=== PATIENT | male | born 1960 | race Native Hawaiian/Other Pacific Islander ===

== ENCOUNTER 2016-08-19 21:47 | Emergency (ER) | payer OTHER ==
[~2016-08-19] VITALS: Ht 193 cm; Wt 145.2 kg
[~2016-08-19 21:47] MED LIST: ACTOS15 MG OR; ALBUAER5; ALBUAER5 INH; ALBUTEROL0.083 % IN; CRESTOR20 MG PO; FURO40TA93 PO; HYDROCHLOROT50 MG; HYDROCHLOROT50 MG PO; KLOR-CON M2020 MEQ OR; LEVAQUIN500 MG PO; LEVO0.0218 PO; MELOXICAM7.5 MG PO; METF500T PO; MOBIC15 MG OR; NEXIUM40 M1 OR; RYBIX ODT50 MG OR; TRAM50TA; [UNRECOGNIZED DRUG - OTHER] OR
[2016-08-19 22:50] VITALS: BP 145/82; TEMP 98.8
== END 2016-08-19 22:56 | disposition home or self-care (01) ==
LOC: ED 21:47
DX: L03.113 Cellulitis of right upper limb (principal)
CPT/HCPCS: 99283

== ENCOUNTER 2016-08-22 07:59 | Observation (INO) | payer OTHER ==
[~2016-08-22] VITALS: Ht 193 cm; Wt 178.7 kg
[2016-08-22 08:39] VITALS: BP 144/85; TEMP 98.4
[2016-08-22 09:43] LABS: PLATELET COUNT 195 K/uL (142-355)
[2016-08-22 09:50] LABS: POTASSIUM 4.3 mmol/L (3.6-5.2); SODIUM 134 mmol/L (136-145)
[2016-08-22] MEDS ORDERED: JANUMET1 TA1 PO (14:13)
[2016-08-22 16:58] VITALS: BP 120/80; TEMP 97.6; Ht 193 cm; Wt 178.7 kg
--- NOTE | 2016-08-22 17:35 | NUR ---
1700 DR FISH HERE FOR CONSULT AT THIS TIME. AT BS. DISCUSSING I&D CONSENT OBTAINED FOR I&D AT THIS TIME. 1715 I&D PERFORMED AT BS. WOUND CULTURE OBTAINED. AFTER PACKING WOUND WITH 1/4 INCH IODOFORM WOUND COVERED WITH 4X4 TELFAS AND WRAPPED WITH KYRIE. PT STATED "I FEEL SICK LIKE IM GOING TO BE SICK" AT THAT TIME PT SLUMPED TO LEFT SIDE WITH HEAD FALLING FOWARD. O2 AT 2 L/NC PLACED ON PT AT THIS TIME. DR FISH REMAINS AT BS. PT PLACED IN HIGH FOWLERS POSITION. SPONTANEOUS RESP PRESENT HR PALP. RESP EVEN AND NON LABORED. AFTER APPROX 1 MIN PT AWAKE AND ALERT. DENIES ANY CHEST PAIN ONLY SLIGHT NAUSEA REPORTED. ORDERS REC'D FOR CE AND EKG AT THIS TIME. 1730 LABS DRAWN AND SENT TO LAB ALONG WITH WOUND CULTURE. RESP AT BS FOR EKG. [address] REYNOLDS. AWAITING FURTHER ORDERS AT THIS TIME.
[2016-08-22] MEDS ORDERED: VICTOZA18 MG/3 ML SC (17:59)
[2016-08-22 20:00] VITALS: BP 119/68; TEMP 98
--- NOTE | 2016-08-22 22:12 | NUR ---
2124-Received pt from [facility] via wheelchair. Pt alert and oriented. Denies chest pain at this time. No distress noted. VSS per monitor. NS infusing at 75cc/hr via 22g to LFA. No s/s of infiltration noted. Assessment completed. Bed in low position. R Hand covered with kerlex from I&D this afternoon. No drainage noted at this time. Call light within reach. Will continue to monitor.
--- NOTE | 2016-08-22 23:28 | NUR ---
2320-Notified Dr. Fried of pt's home med. Orders to resume Janumet XR given at this time. May use home med.
[2016-08-22 23:30] VITALS: BP 124/69
[2016-08-23] VITALS (9 sets, daily range): BP systolic 100–151; BP diastolic 51–80; TEMP 97.7–97.8
--- NOTE | 2016-08-23 01:58 | NUR ---
Dr. Fried reviewed EKG. No orders given at this time. Pt denies chest pain at this time. Will continue to monitor.
--- NOTE | 2016-08-23 05:12 | NUR ---
Pt resting in bed with eyes closed. No distress noted. VSS per monitor. WIll continue to monitor.
[2016-08-23 06:33] LABS: SODIUM 133 mmol/L (136-145)
[2016-08-23 06:47] LABS: PLATELET COUNT 199 K/uL (142-355)
--- NOTE | 2016-08-23 07:59 | NUR ---
PT AWAKE RESTING IN BED WATCHING TV. NO COMPLAINTS VOICED DENIES PAIN. RECIEVED AM MEDS. WANTS TO GO HOME TODAY. DRESSING TO RIGHT HAND CLEAN DRY INTACT.
--- NOTE | 2016-08-23 10:20 | NUR ---
ATE ALL BREAKFAST [place] WELL, RECIEVED AM MEDS. PT REFUSEED TO TAKE LOVENOX, PT DID TAKE ASA ALONG WITH OTHER MEDS. REPORT TO SHERWIN, DR REYNOLDS'A NURSE.
[2016-08-23] MEDS ORDERED: VICTOZA18 MG/3 ML SC (10:54)
--- NOTE | 2016-08-23 11:26 | NUR ---
DR. REYNOLDS HERE TO SEE PT.
--- NOTE | 2016-08-23 12:45 | NUR ---
REMOVED IV LEFT AC CATH INTACT NO REDNESS NO SWELLING AT SITE. REDRESSED RIGHT HAND, SWELLING AND REDNESS DOWN ACCORDING TO PT. PACKING IN PLACE, DR REYNOLDS OBSERVED WOUND. HAND REWRAPPED, AND RIGHT ARM PLACED IN SLING TO KEEP HAND ELEVATED. PT FAMILY MEMBER HERE, REVIEWED WITH PT AND FAMILY MEMBER DISCHARGE INSTRUCTIONS, PT RECIEVED RX. CALLED TO DR FISH, RECIEVED ORDERS PT WILL FOLLOW UP WITH PCP. PT VERBALIZED UNDERSTANDING OF DISCHARGE ORDERS. PT DISCHARGED VIA W/C TO GO HOME WITH FAMILY MEMBER, NO COMPLAINTS.
== END 2016-08-23 12:40 | disposition home or self-care (01) ==
LOC: ED 07:59 → MED/SURG 11:15 → ICU 11:15 → MED/SURG 21:21 → ICU 21:21
PROVIDERS: Emergency Medicine
PROC: 0H9GXZZ Drainage of Left Hand Skin, External Approach (ICD-10-PCS; principal; 2016-08-22)
DX: L03.113 Cellulitis of right upper limb (principal); E11.9 Type 2 diabetes mellitus without complications; B95.7 Other staphylococcus as the cause of diseases classified elsewhere; J44.9 Chronic obstructive pulmonary disease, unspecified; E66.8 Other obesity
CPT/HCPCS: 36415; 80053; 82550; 82948; 83036; 84484; 85027; 87070; 87077; 87185; 87186; 87205; 93005; 94760; 96361; 96365; 96372; 99220; 99283; 99284; G0378; J1650; J3370; J3490

== ENCOUNTER 2017-01-15 17:34 | Emergency (ER) | payer OTHER ==
[~2017-01-15] VITALS: Ht 193 cm; Wt 152.0 kg
[2017-01-15 17:30] VITALS: TEMP 97.5
[~2017-01-15 17:34] MED LIST changes: +JANUMET1 TA1 PO; +VICTOZA18 MG/3 ML SC
[2017-01-15 19:15] VITALS: BP 125/80
== END 2017-01-15 19:15 | disposition home or self-care (01) ==
LOC: ED 17:34
PROC: 0HQKXZZ Repair Right Lower Leg Skin, External Approach (ICD-10-PCS; principal; 2017-01-15)
DX: S81.811A Laceration without foreign body, right lower leg, initial encounter (principal); W29.3XXA Contact with powered garden and outdoor hand tools and machinery, initial encounter; Y92.89 Other specified places as the place of occurrence of the external cause
CPT/HCPCS: 90715; 99283

== ENCOUNTER 2017-04-15 11:17 | Inpatient (IN) | payer OTHER ==
[~2017-04-15] VITALS: Ht 193 cm; Wt 154.8 kg
[2017-04-15 11:30] VITALS: BP 160/83; TEMP 97.4
[2017-04-15 12:30] LABS: PLATELET COUNT 196 K/uL (142-355)
[2017-04-15 12:44] LABS: POTASSIUM 4.6 mmol/L (3.6-5.2); SODIUM 129 mmol/L (136-145)
[2017-04-15 15:40] VITALS: BP 119/65; TEMP 97.8; Ht 193 cm; Wt 154.8 kg
[2017-04-15 16:00] VITALS: BP 119/65; TEMP 97.8
[2017-04-15 20:00] VITALS: BP 131/67; TEMP 99.1
[2017-04-16] VITALS: BP 130/63; TEMP 98.1
[2017-04-16 04:00] VITALS: BP 105/67; TEMP 98.6
[2017-04-16 06:04] LABS: POTASSIUM 3.9 mmol/L (3.6-5.2)
[2017-04-16 06:12] LABS: PLATELET COUNT 198 K/uL (142-355)
[2017-04-16 08:00] VITALS: BP 115/55; TEMP 97.1
[2017-04-16 11:59] VITALS: BP 106/70; TEMP 98.9
[2017-04-16 16:00] VITALS: BP 143/59; TEMP 98.2
[2017-04-16 20:00] VITALS: BP 143/58; TEMP 98.9
[2017-04-17] VITALS: BP 147/69; BP 161/62; TEMP 97.8; TEMP 99.2
[2017-04-17 04:00] VITALS: BP 126/67; TEMP 98.7
[2017-04-17 05:07] LABS: PLATELET COUNT 197 K/uL (142-355)
[2017-04-17 05:23] LABS: POTASSIUM 3.4 mmol/L (3.6-5.2); SODIUM 131 mmol/L (136-145)
[2017-04-17 08:00] VITALS: BP 147/64; TEMP 98.2
[2017-04-17] MEDS ORDERED: JANUMET XR1 TA1 PO (08:47)
[2017-04-17 12:00] VITALS: BP 118/55; TEMP 98.3
[2017-04-17 16:00] VITALS: BP 130/42; TEMP 98.7
[2017-04-17 20:15] VITALS: BP 106/51; TEMP 99.4
[2017-04-18] VITALS: BP 126/48; TEMP 98.5
[2017-04-18 04:00] VITALS: BP 111/55; TEMP 99.1
[2017-04-18 05:43] LABS: PLATELET COUNT 220 K/uL (142-355)
[2017-04-18 06:02] LABS: POTASSIUM 3.4 mmol/L (3.6-5.2); SODIUM 131 mmol/L (136-145)
[2017-04-18 08:00] VITALS: BP 136/46; TEMP 97.7
[2017-04-18 12:00] VITALS: BP 135/70; TEMP 98.9
[2017-04-18 16:00] VITALS: BP 125/56; TEMP 97.8
[2017-04-18 20:00] VITALS: BP 156/57; TEMP 99.4
[2017-04-19] VITALS: BP 127/76; TEMP 99.1
[2017-04-19 04:00] VITALS: BP 121/88; TEMP 98.5
[2017-04-19 05:41] LABS: PLATELET COUNT 253 K/uL (142-355)
[2017-04-19 06:29] LABS: POTASSIUM 3.3 mmol/L (3.6-5.2); SODIUM 131 mmol/L (136-145)
[2017-04-19 08:00] VITALS: BP 130/73; TEMP 98.5
[2017-04-19 12:00] VITALS: BP 107/54; TEMP 98.1
[2017-04-19 16:00] VITALS: BP 139/80; TEMP 99.7
[2017-04-19 20:00] VITALS: BP 134/83; TEMP 98.2
[2017-04-20] VITALS (7 sets, daily range): BP systolic 113–144; BP diastolic 50–77; TEMP 97.9–98.6
[2017-04-20 03:35] LABS: PLATELET COUNT 255 K/uL (142-355)
[2017-04-20 03:44] LABS: POTASSIUM 3.2 mmol/L (3.6-5.2); SODIUM 131 mmol/L (136-145)
[2017-04-21 04:16] VITALS: BP 127/52; TEMP 98
[2017-04-21 06:27] LABS: PLATELET COUNT 273 K/uL (142-355)
[2017-04-21 07:00] LABS: POTASSIUM 3.8 mmol/L (3.6-5.2); SODIUM 133 mmol/L (136-145)
[2017-04-21 08:00] VITALS: BP 135/66; TEMP 98.3
== END 2017-04-21 12:00 | disposition home or self-care (01) | DRG 603 ==
LOC: ED 11:17 → MED/SURG 14:23
PROVIDERS: Specialist
DX: L03.115 Cellulitis of right lower limb (principal); B95.61 Methicillin susceptible Staphylococcus aureus infection as the cause of diseases classified elsewhere; E11.9 Type 2 diabetes mellitus without complications; I73.89 Other specified peripheral vascular diseases; E03.8 Other specified hypothyroidism; J44.9 Chronic obstructive pulmonary disease, unspecified; E11.42 Type 2 diabetes mellitus with diabetic polyneuropathy; E87.6 Hypokalemia
CPT/HCPCS: 36415; 80053; 80202; 82948; 83735; 85027; 85651; 87070; 87077; 87185; 87186; 87205; 94640; 94664; 94760; 96365; 96372; 96375; 99284; J1815; J1885; J3370

== ENCOUNTER 2017-09-29 15:38 | Emergency (ER) | payer OTHER ==
[~2017-09-29] VITALS: Ht 193 cm; Wt 154.2 kg
[~2017-09-29 15:38] MED LIST changes: +JANUMET XR1 TA1 PO
[2017-09-29 19:19] VITALS: BP 138/79; TEMP 99.6
== END 2017-09-29 19:20 | disposition home or self-care (01) ==
LOC: ED 15:38
DX: R22.0 Localized swelling, mass and lump, head (principal)
CPT/HCPCS: 96372; 99282; J1885

== ENCOUNTER 2022-02-21 11:03 | Emergency (ER) | payer OTHER ==
[2022-02-21 17:02] LABS: POTASSIUM 3.7 mmol/L (3.6-5.2)
[2022-02-21 18:17] LABS: PLATELET COUNT 144 K/uL (142-355)
== END 2022-02-21 18:55 | disposition home or self-care (01) ==
LOC: ED 11:03
PROVIDERS: Family Medicine
DX: U07.1 COVID-19 (principal); J12.82 Pneumonia due to coronavirus disease 2019; R09.02 Hypoxemia; R06.09 Other forms of dyspnea; E87.8 Other disorders of electrolyte and fluid balance, not elsewhere classified; E11.9 Type 2 diabetes mellitus without complications; Z79.84 Long term (current) use of oral hypoglycemic drugs
CPT/HCPCS: 36415; 80053; 81000; 82150; 82550; 83690; 84484; 85027; 85379; 85610; 85730; 86140; 87077; 87086; 87088; 87186; 87651; 93005; 94664; 96360; 96374; 99284; J1885; J2930

== ENCOUNTER 2022-02-22 15:46 | Outpatient (CLI) | payer OTHER ==
[~2022-02-22] VITALS: Ht 193 cm; Wt 142.9 kg
[2022-02-22 16:10] VITALS: BP 106/56; TEMP 98.7
[2022-02-22 17:30] VITALS: BP 108/60; TEMP 98.9
--- NOTE | 2022-02-22 17:48 | NUR ---
PT ARRIVED AT 1605 FOR IV INFUSION OF BEBTELOVIMAB X1 DOSE. OBTAINED A 22 GA TO LAC X 1 ATTEMPT. ADMINISTERED MED ORDERED. NO S/S OF ADVERSE REACTIONS. PT A&O X4. NO VOICED COMPLAINTS. NO SWELLING/REDNESS NOTED TO IV SITE. AFTER ADMINISTRATION OF MED PT OBSERVED X1 HOUR. NO S/S OF ADVERSE REACTION NOTED. VITAL SIGNS OBTAINED AND CHARTED ON FLOW SHEET. IV SITE TO LAC D/C'D AND PT AMBULATED OUT OF FACILITY AT 1740 WITH .
== END 2022-02-22 23:00 | disposition home or self-care (01) ==
LOC: INF 15:46
PROVIDERS: ATTEND Family Medicine
DX: Z23 Encounter for immunization (principal); U07.1 COVID-19
CPT/HCPCS: 96374; Q0222

== ENCOUNTER 2023-01-19 08:42 | Emergency (ER) | payer OTHER ==
[~2023-01-19] VITALS: Ht 193 cm; Wt 157.9 kg
[~2023-01-19 08:42] MED LIST changes: +AMOX875T8 PO; +FUROSEMIDE20 MG PO; +HUMULIN R100 UNIT/M IM; +HYDR25TA60 PO; +JANUVIA100 MG PO; +LANTUS SOL100 UNIT/M SC; +LEVO0.2T35 PO; +MOBIC15 MG PO; +SIMV20TA2 PO
[2023-01-19 09:10] LABS: PLATELET COUNT 219 K/uL (142-355)
[2023-01-19 09:13] LABS: POTASSIUM 4.2 mmol/L (3.6-5.2)
[2023-01-19 09:16] LABS: PARTIAL THROMBOPLASTIN TIME 25.9 SECONDS (23.9-36.7)
[2023-01-19 12:40] VITALS: BP 156/78; TEMP 97
== END 2023-01-19 12:40 | disposition short-term general hospital (02) ==
LOC: ED 08:42
PROVIDERS: Family Medicine
DX: J39.2 Other diseases of pharynx (principal); T17.208A Unspecified foreign body in pharynx causing other injury, initial encounter
CPT/HCPCS: 36415; 80053; 85027; 85610; 85730; 99283; Q9963